=== PATIENT | female | born 1980 | race Caucasian/White ===

== ENCOUNTER 2025-01-22 10:39 | Inpatient (IN) | payer BC, SELFPAY ==
[2025-01-22] VITALS (82 sets, daily range): BP systolic 85–131; BP diastolic 32–88; PULSE 100–134; RESP 11–29; TEMP 36.4–38.1; O2SAT 67–100
--- NOTE | 2025-01-22 10:30 | RT.EKG_ITS ---
APPROVED REPORT Exam: Resting ECG Reason for Exam: Chest Pain Patient Location: E HR:122 bpm ECG Measurements Heart Rate 122 AXIS ND 152 P 96 QRSd 77 QRS 47 QT 317 T 54 QTc 452 Conclusion Sinus tachycardia...rate> 99 Physician: no stemi
[2025-01-22] MEDS: Ondansetron 4 MG/2 ML VIAL IVP (10:57)
[2025-01-22] MEDS: Lactated Ringers 1,000 ML 1000 ML IV ×2 (10:57→13:00)
[2025-01-22 11:03] LABS: BE (Venous) -17 mmol/L (-2-3); HCO3 (Venous) 12 mmol/L (23-28); O2 Sat (Venous) 62 %; TCO2 (Venous) 11 mmol/L (24-29); pCO2 (Venous) 31 mmHg (41-51); pO2 (Venous) 39 mmHg
[2025-01-22 11:04] LABS: Abs Immature Grans 0.09 10^3/uL (0.0-0.06); HCT 44.7 % (36.0-46.0); HGB 14.8 g/dL (11.2-15.7); Immature Grans % 0.5 %; MCH 32.5 pg (27.0-33.0); MCHC 33.1 % (32.0-36.0); MCV 98 fL (80-95); MPV 10.8 fL (8.0-11.0); Platelet Count 291 10^3/uL (130-400); RBC 4.55 10^6/uL (3.93-5.22); RDW 11.6 % (11.7-14.6); RDW-SD 42.3 fL; WBC 17.70 10^3/uL (4.4-10.8)
--- NOTE | 2025-01-22 11:15 | DI.RAD_ITS ---
Exam(s) XR CHEST 2V PA LATERAL EXAM: XR CHEST 2V PA LATERAL CLINICAL HISTORY: chest pain. TECHNIQUE: 2D digital imaging was performed. COMPARISON: No exams were available for comparison FINDINGS: 2 views: Heart size is normal. The mediastinum is not widened. Lungs are clear. No infiltrates nor pleural effusions. IMPRESSION: No acute pulmonary findings. DATA REPOSITORY: RADIATION DOSE DELIVERED:
[2025-01-22 11:19] LABS: Lipase 18 U/L (<78)
[2025-01-22 11:30] LABS: ALT 34 U/L (14-59); AST 31 U/L (15-37); Albumin 4.2 g/dL (3.4-5.0); Alkaline Phosphatase 116 U/L (46-116); Anion Gap 25.7 mmol/L (3-11); BUN 21 mg/dL (7-18); Bilirubin, Total 0.6 mg/dL (0.2-1.0); CO2 13.3 mmol/L (21.0-32.0); Calcium 8.9 mg/dL (8.5-10.1); Chloride 98 mmol/L (98-107); Estimated GFR 72.13 (mL/min/1.73m2); Glucose 296 mg/dL (74-106); Magnesium 2.2 mg/dL (1.8-2.4); Potassium 4.6 mmol/L (3.5-5.1); Sodium 137 mmol/L (136-145); Total Protein 7.6 g/dL (6.4-8.2); Troponin I 4 ng/L (<or=51)
[2025-01-22] MEDS: ACETAMINOPHEN 500 MG/50 ML BAG 200 MG IVPB ×2 (11:56→16:36)
[2025-01-22] MEDS: Dexamethasone 10 MG/ML VIAL IVP (11:56)
[2025-01-22] MEDS: diphenhydrAMINE 50 MG/ML VIAL 25 MG IVP (11:57)
[2025-01-22] MEDS: PIPERACILLIN/TAZO 3.375 GM in Normal Saline 50 ML IVPB ×2 (11:58→18:29)
[2025-01-22 13:04] LABS: Troponin I 5 ng/L (<or=51)
[2025-01-22] MEDS: Pantoprazole 40 MG VIAL IVP (13:27)
[2025-01-22] MEDS: Metoclopramide 10 MG/2 ML VIAL IVP (13:27)
[2025-01-22] MEDS: INSULIN REGULAR IN 0.9 % NACL 100 UNIT/100 ML BAG 6.622 UNIT IVINF (13:28)
[2025-01-22 13:36] LABS: Glucose 500 mg/dL (Negative)
[2025-01-22 13:42] LABS: RBC 0-2 HPF (0-2); WBC Negative HPF (0-5)
[2025-01-22 13:43] LABS: C & S Indicated? No
[2025-01-22] MEDS: POTASSIUM CHLORIDE/0.9% NACL 1,000 ML 500 MEQ IV (14:25)
--- NOTE | 2025-01-22 14:33 | W.ED.GENAD ---
Discharge Plan Discharge Details Chief Complaint: Chest Pain Primary Care Provider: Cheryl,Local ED Provider: Damaris Vides Home Meds and New Rx's Prescriptions: No Action insulin aspart U-100 [Novolog FlexPen U-100 Insulin] 100 unit/mL (3 mL) insulin pen 1 sliding scale dose subcut USEASDIRECTD Patient Comments: Pt has insulin pump 01/22/25 Mounjaro 15 mg/0.5 mL pen injector 15 mg subcut QWEEK HPI General Date/Time Provider Initiated Documentation: 01/22/25 10:42. HPI Narrative: 44-year-old female with history of diabetic ketoacidosis presenting with vomiting and throat swelling. Patient reports feeling warm since last night, followed by dark vomitus early this morning. Unable to drink, experiences epigastric pain and throat swelling, typical during such episodes. Manages secretions but notes voice change. No urinary symptoms, diarrhea, or sick contacts. Insulin pump in use, blood sugar 310 prior to arrival. No DKA since age 19, generally manages condition well. No additional symptoms. Related Data Home Medications ?Medication ?Instructions ?Recorded ?Confirmed insulin aspart U-100 100 unit/mL 1 sliding scale dose subcut 01/22/25 01/22/25 (3 mL) subcutaneous pen (Novolog USEASDIRECTD FlexPen U-100 Insulin aspart) tirzepatide 15 mg/0.5 mL 15 mg subcut QWEEK 01/22/25 01/22/25 subcutaneous pen injector (Mounjaro) Allergies Allergy/AdvReac Type Severity Reaction Status Date / Time cephalothin (From Seffin) Allergy Intermediate Hives Verified 01/22/25 10:48 General Stated Complaint: Chest Pain GAUDENCIO: 2 Course Vital Signs Vital signs: Vital Signs Temperature 36.4 C 01/22/25 10:43 Pulse 121 H 01/22/25 10:43 Respiratory Rate 20 01/22/25 10:43 Blood Pressure 124/46 L 01/22/25 10:43 Pulse Oximetry 98 01/22/25 10:43 Temperature 36.4 C 01/22/25 10:43 Temperature Source Tympanic 01/22/25 10:43 Pulse 131 H 01/22/25 14:01 Pulse 131 H 01/22/25 14:01 Respiratory Rate 16 01/22/25 14:01 Respiratory Effort Normal, Non-Labored 01/22/25 11:02 Respiratory Depth Normal 01/22/25 11:02 Respiratory Pattern Normal 01/22/25 11:02 Blood Pressure 107/57 L 01/22/25 14:00 Blood Pressure Mean 69 01/22/25 14:00 Blood Pressure Position Sitting 01/22/25 10:43 Pulse Oximetry 97 01/22/25 14:01 Oxygen Delivery Method Room Air 01/22/25 10:43 Oxygen Flow Rate 0 01/22/25 10:43 Pain Level 10 01/22/25 10:43 Lab/Test Results Lab/Test Results: 01/22/25 11:40 Blood Blood Culture - Pending 01/22/25 10:55 Blood Blood Culture - Pending Laboratory Tests Range/Units 01/22/25 01/22/25 01/22/25 10:55 12:21 12:50 WBC (4.4-10.8) 10^3/uL 17.70 H RBC (3.93-5.22) 10^6/uL 4.55 Hgb (11.2-15.7) g/dL 14.8 Hct (36.0-46.0) % 44.7 MCV (80-95) fL 98 H MCH (27.0-33.0) pg 32.5 MCHC (32.0-36.0) % 33.1 RDW (11.7-14.6) % 11.6 L Plt Count (130-400) 10^3/uL 291 MPV (8.0-11.0) fL 10.8 Immature Gran % % 0.5 Neutrophils % % 91.1 Lymphocytes % % 5.9 Monocytes % % 2.2 Eosinophils % % 0.1 Basophils % % 0.2 Nucleated RBC % (0.0-0.3) % 0.0 Absolute Neutrophils (1.2-6.7) 10^3/uL 16.12 H Absolute Lymphocytes (1.2-3.4) 10^3/uL 1.04 L Absolute Monocytes (0.1-0.8) 10^3/uL 0.39 Absolute Eosinophils (0.0-0.7) 10^3/uL 0.02 Absolute Basophils (0.0-0.2) 10^3/uL 0.04 VBG pH (7.31-7.41) 7.18 L* VBG pCO2 (41-51) mmHg 31 L VBG pO2 mmHg 39 VBG HCO3 (23-28) mmol/L 12 L VBG Total CO2 (24-29) mmol/L 11 L VBG O2 Saturation % 62 VBG Base Excess (-2-3) mmol/L -17 L VBG Lactate (<or=2.0) mmol/L 4.2 H* Sodium (136-145) mmol/L 137 Potassium (3.5-5.1) mmol/L 4.6 Chloride (98-107) mmol/L 98 Carbon Dioxide (21.0-32.0) mmol/L 13.3 L Anion Gap (3-11) mmol/L 25.7 H BUN (7-18) mg/dL 21 H Creatinine (0.55-1.02) mg/dL 1.0 Est GFR (CKD-EPI 2020) (mL/min/1.73m2) 72.13 Glucose (74-106) mg/dL 296 H Calcium (8.5-10.1) mg/dL 8.9 Magnesium (1.8-2.4) mg/dL 2.2 Total Bilirubin (0.2-1.0) mg/dL 0.6 AST (15-37) U/L 31 ALT (14-59) U/L 34 Alkaline Phosphatase (46-116) U/L 116 Troponin I (<or=51) ng/L 4 5 Total Protein (6.4-8.2) g/dL 7.6 Albumin (3.4-5.0) g/dL 4.2 Lipase (<78) U/L 18 Urine Color (Yellow) Yellow Urine Clarity (Clear) Clear Urine pH (5-8) 5.5 Ur Specific [place] (1.005-1.025) >= 1.030 H Urine Protein (Neg-Trace) mg/dL 30 H Urine Ketones (Negative) mg/dL >=160 H Urine Blood (Negative) Negative Urine Nitrite (Negative) Negative Urine Bilirubin (Negative) Negative Urine Urobilinogen (Up to 0.2) mg/dL 0.2 Ur Leukocyte Esterase (Negative) Negative Urine RBC (0-2) HPF 0-2 Urine WBC (0-5) HPF Negative Ur Epithelial Cells (Negative) HPF Moderate Urine Crystals (Negative) HPF Negative Urine Bacteria (Negative) HPF Rare Urine Casts (Negative) LPF 0-2 Hyaline Urine Mucus (Negative) Negative Ur Culture Indicated? No Urine Glucose (Negative) mg/dL 500 H Medical Decision Making General Appearance: Alert, oriented, appears unwell and flushed. Vital signs: Within normal limits. HEENT: No mandibular tenderness or swelling. Oropharynx patent, swelling noted to pillars and uvula, likely from vomiting. Slightly hoarse phonation. No meningismus. Respiratory: Lungs clear to auscultation. No respiratory distress. Cardiovascular: Sinus tachycardia, no rubs or murmurs. Gastrointestinal: No abdominal tenderness. Skin: No rashes or lesions. Neurological: Normal. Care time 45 minutes secondary to acute diabetic ketoacidosis requiring fluids IV antibiotics IV insulin telemetry monitoring EKG interpretation review diagnostic imaging interpretation review and consultation with admitting hospitalist Leukocytosis 17,000, shift 16%. pH 7.18. Gap 25. Ketonuria. Beta hydroxybutyrate present. CO2 13. Urinalysis negative for infection. Initial potassium 4.6. Chest x-ray shows no acute abnormality. Radiology interpretation of my review Initial Assessment: 44-year-old female with diabetic ketoacidosis. Vomiting, epigastric pain, throat swelling, hoarse phonation. Blood sugar 310. No urinary symptoms or diarrhea. Alert, oriented, flushed, sinus tachycardia, no respiratory distress, oropharynx swelling. Differential Diagnosis: - Diabetic Ketoacidosis: Labs consistent with DKA. No obvious infection source. Admission required. - Infection: Tachycardia, leukocytosis. Zosyn administered. No evidence in urinalysis. ED Course: - Chest x-ray interpreted by radiology, no acute abnormality. - Labs: Leukocytosis 17,000, shift 16%, pH 7.18, gap 25, CO2 13, ketonuria, beta hydroxybutyrate present. - Zosyn administered. - 2 L LR followed by NS with potassium. Initial potassium 4.6, started 10 mEq potassium/hour with 500 cm? boluses. - Insulin administration delayed. - Decadron and Benadryl given for throat swelling. - Tylenol given for discomfort. - Tachycardia improved slightly. - ABG requested, to be drawn at 1500 hours. - Repeat BMP and lactate pending. - 45 minutes of critical care time provided. Final Assessment: Management of diabetic ketoacidosis with fluids, insulin, telemetry monitoring, diagnostic imaging interpretation, and consultation. Tachycardia improved. Throat swelling reduced. Clinical Impression: - Diabetic Ketoacidosis - Infection Disposition: - Admission for diabetic ketoacidosis. PFSH Social History Smoking/Tobacco Use Status: Never Smoking risk assessment performed?: Yes Alcohol Intake: current Alcohol Intake frequency: a few times a month Substance use type: does not use PAWSS Have you Been Recently Intoxicated or Drunk Within the Last 30 days?: No Have you Ever Experienced Previous Episodes of Alcohol Withdrawal?: No Have you ever Experienced Withdrawal Seizures?: No Have you ever Experienced Delirium Tremens(DT)s?: No Have you ever undergone Alcohol Rehabilitation Treatment (i.e, inpt ot outpatient treatment programs)?: No Have you ever Experienced Blackouts?: No Have you ever Combined Alcohol with other Downers within the last 90 days?: No Have you ever Combined Alcohol with any other Substance of Abuse during the last 90 days?: No Positive Blood Alcohol level on Presentation? [PCS.BAL]: No Evidence of Increased Autonomic Activity (i.e. HR>120, tremor, sweating, agitation, nausea)?: No Result: 0
[2025-01-22 14:52] LABS: Anion Gap 23.4 mmol/L (3-11); BUN 19 mg/dL (7-18); CO2 11.6 mmol/L (21.0-32.0); Calcium 8.1 mg/dL (8.5-10.1); Chloride 103 mmol/L (98-107); Estimated GFR 72.13 (mL/min/1.73m2); Glucose 245 mg/dL (74-106); Potassium 4.6 mmol/L (3.5-5.1); Sodium 138 mmol/L (136-145)
[2025-01-22 15:44] LABS: BE (Venous) -18 mmol/L (-2-3); HCO3 (Venous) 10 mmol/L (23-28); O2 Sat (Venous) 81 %; TCO2 (Venous) 9 mmol/L (24-29); pCO2 (Venous) 25 mmHg (41-51); pO2 (Venous) 50 mmHg
[2025-01-22 15:58] LABS: Anion Gap 19.8 mmol/L (3-11); BUN 18 mg/dL (7-18); CO2 12.2 mmol/L (21.0-32.0); Calcium 7.6 mg/dL (8.5-10.1); Chloride 107 mmol/L (98-107); Estimated GFR 81.86 (mL/min/1.73m2); Glucose 168 mg/dL (74-106); Potassium 4.5 mmol/L (3.5-5.1); Sodium 139 mmol/L (136-145)
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
--- NOTE | 2025-01-22 16:04 | NUR.NOTE ---
This rn s/w Dr Pollard in ED. This rn and provider reviewed pt resulted BMP. Per provider: okay to start LR at 250 ml/hr and D5 150 ml/hr. Okay to transition to Q1HR finger stick and Q4 hr BMP. This rn went and informed pt of plan. Pt awake, alert, and oriented x4. No acute distress noted. Pt verbalized that she feels much better. :
--- NOTE | 2025-01-22 16:19 | W.PC.ACHO ---
Registration Status: ADM IN Primary Language: Preferred Language: ED Information & Data Chief Complaint Chest Pain 01/22/25 14:35 Triage Note Pt arrives to ED c/o CP. Pt 01/22/25 10:43 states she started feeling off last night around 2100 hrs. Pt states the pain began this AM around 0700 hrs w/ N/V. Pt states pain radiates into her back and up both sides of her neck. Medical / Surgical History (Last Updated 01/22/25 @ 16:11 by Master Pollard) Cervical disc disease Type 1 diabetes (Last Updated 01/22/25 @ 16:11 by Master Pollard) S/P sinus surgery S/P hernia repair S/P section Most Recent Vital Signs Temperature 36.4 C 01/22/25 10:43 Temperature Source Tympanic 01/22/25 10:43 Pulse 119 H 01/22/25 15:20 Pulse 121 H 01/22/25 15:20 Respiratory Rate 19 01/22/25 15:20 Respiratory Effort Normal, Non-Labored 01/22/25 11:02 Respiratory Depth Normal 01/22/25 11:02 Respiratory Pattern Normal 01/22/25 11:02 Blood Pressure 105/59 L 01/22/25 15:16 Blood Pressure Mean 72 01/22/25 15:16 Blood Pressure Position Sitting 01/22/25 10:43 Pulse Oximetry 97 01/22/25 15:20 Oxygen Delivery Method Room Air 01/22/25 10:43 Oxygen Flow Rate 0 01/22/25 10:43 Pain Level 10 01/22/25 10:43 Allergies cephalothin (From Seffin) Allergy (Intermediate, Verified 01/22/25 10:48) Hives Active Medications Generic Name Dose Route Start Last Admin Trade Name Freq PRN Reason Stop Dose Admin Potassium Chloride/Sodium Chloride 1,000 mls @ 500 mls/hr 01/22/25 12:45 01/22/25 14:25 Kcl 20meq/Ns IV 500 mls/hr INFUSION ELSI Administration Insulin Human Regular 100 unit in 100 mls @ 6.622 mls/hr 01/22/25 12:45 01/22/25 13:28 Myxredlin IVINF 0.1 unit/kg/hr INFUSION ELSI 6.622 mls/hr Protocol Administration 0.1 UNIT/KG/HR IV IV Catheter Type [Left Peripheral IV Antecubital] IV Catheter Type [Right Peripheral IV Antecubital] IV Catheter Gauge [Left 20 Antecubital] IV Catheter Gauge [Right 20 Antecubital] Diagnostics 01/22/25 01/22/25 01/22/25 Range/Units 23:15 19:15 15:30 WBC (4.4-10.8) 10^3/uL RBC (3.93-5.22) 10^6/uL Hgb (11.2-15.7) g/dL Hct (36.0-46.0) % MCV (80-95) fL MCH (27.0-33.0) pg MCHC (32.0-36.0) % RDW (11.7-14.6) % Plt Count (130-400) 10^3/uL MPV (8.0-11.0) fL Immature Gran % % Neutrophils % % Lymphocytes % % Monocytes % % Eosinophils % % Basophils % % Nucleated RBC % (0.0-0.3) % Absolute Neutrophils (1.2-6.7) 10^3/uL Absolute Lymphocytes (1.2-3.4) 10^3/uL Absolute Monocytes (0.1-0.8) 10^3/uL Absolute Eosinophils (0.0-0.7) 10^3/uL Absolute Basophils (0.0-0.2) 10^3/uL ABG Sample Site ABG pH ABG pCO2 ABG pO2 ABG HCO3 ABG Total CO2 ABG O2 Saturation ABG Base Excess VBG pH 7.20 L (7.31-7.41) VBG pCO2 25 L (41-51) mmHg VBG pO2 50 mmHg VBG HCO3 10 L (23-28) mmol/L VBG Total CO2 9 L (24-29) mmol/L VBG O2 Saturation 81 % VBG Base Excess -18 L (-2-3) mmol/L VBG Lactate (<or=2.0) mmol/L Sodium Pending Pending 139 (136-145) mmol/L Potassium Pending Pending 4.5 (3.5-5.1) mmol/L Chloride Pending Pending 107 (98-107) mmol/L Carbon Dioxide Pending Pending 12.2 L (21.0-32.0) mmol/L Anion Gap Pending Pending 19.8 H (3-11) mmol/L BUN Pending Pending 18 (7-18) mg/dL Creatinine Pending Pending 0.9 (0.55-1.02) mg/dL Est GFR (CKD-EPI 2020) Pending Pending 81.86 (mL/min/1.73m2) Glucose Pending Pending 168 H (74-106) mg/dL Calcium Pending Pending 7.6 L (8.5-10.1) mg/dL Magnesium (1.8-2.4) mg/dL Total Bilirubin (0.2-1.0) mg/dL AST (15-37) U/L ALT (14-59) U/L Alkaline Phosphatase (46-116) U/L Troponin I (<or=51) ng/L Total Protein (6.4-8.2) g/dL Albumin (3.4-5.0) g/dL Lipase (<78) U/L Urine Color (Yellow) Urine Clarity (Clear) Urine pH (5-8) Ur Specific Huntington (1.005-1.025) Urine Protein (Neg-Trace) mg/dL Urine Ketones (Negative) mg/dL Urine Blood (Negative) Urine Nitrite (Negative) Urine Bilirubin (Negative) Urine Urobilinogen (Up to 0.2) mg/dL Ur Leukocyte Esterase (Negative) Urine RBC (0-2) HPF Urine WBC (0-5) HPF Ur Epithelial Cells (Negative) HPF Urine Crystals (Negative) HPF Urine Bacteria (Negative) HPF Urine Casts (Negative) LPF Urine Mucus (Negative) Ur Culture Indicated? Urine Glucose (Negative) mg/dL B. divergens/MO-1 PCR Babesia duncani (PCR) Babesia microti DNA PCR Lyme Disease Antibody COVID-19 Source SARS-CoV-2 (PCR) E.chaffeensis DNA (PCR) E.ewingii/canis DNA PCR E.muris eauclairensis (PCR) Influenza Type A (PCR) Influenza Type B (PCR) RSV (PCR) A. phagocytophilum (PCR) Blood B. miyamotoi (PCR) 01/22/25 01/22/25 01/22/25 Range/Units 14:54 14:36 12:50 WBC (4.4-10.8) 10^3/uL RBC (3.93-5.22) 10^6/uL Hgb (11.2-15.7) g/dL Hct (36.0-46.0) % MCV (80-95) fL MCH (27.0-33.0) pg MCHC (32.0-36.0) % RDW (11.7-14.6) % Plt Count (130-400) 10^3/uL MPV (8.0-11.0) fL Immature Gran % % Neutrophils % % Lymphocytes % % Monocytes % % Eosinophils % % Basophils % % Nucleated RBC % (0.0-0.3) % Absolute Neutrophils (1.2-6.7) 10^3/uL Absolute Lymphocytes (1.2-3.4) 10^3/uL Absolute Monocytes (0.1-0.8) 10^3/uL Absolute Eosinophils (0.0-0.7) 10^3/uL Absolute Basophils (0.0-0.2) 10^3/uL ABG Sample Site Pending ABG pH Pending ABG pCO2 Pending ABG pO2 Pending ABG HCO3 Pending ABG Total CO2 Pending ABG O2 Saturation Pending ABG Base Excess Pending VBG pH (7.31-7.41) VBG pCO2 (41-51) mmHg VBG pO2 mmHg VBG HCO3 (23-28) mmol/L VBG Total CO2 (24-29) mmol/L VBG O2 Saturation % VBG Base Excess (-2-3) mmol/L VBG Lactate 3.3 H* (<or=2.0) mmol/L Sodium 138 (136-145) mmol/L Potassium 4.6 (3.5-5.1) mmol/L Chloride 103 (98-107) mmol/L Carbon Dioxide 11.6 L (21.0-32.0) mmol/L Anion Gap 23.4 H (3-11) mmol/L BUN 19 H (7-18) mg/dL Creatinine 1.0 (0.55-1.02) mg/dL Est GFR (CKD-EPI 2020) 72.13 (mL/min/1.73m2) Glucose 245 H (74-106) mg/dL Calcium 8.1 L (8.5-10.1) mg/dL Magnesium (1.8-2.4) mg/dL Total Bilirubin (0.2-1.0) mg/dL AST (15-37) U/L ALT (14-59) U/L Alkaline Phosphatase (46-116) U/L Troponin I (<or=51) ng/L Total Protein (6.4-8.2) g/dL Albumin (3.4-5.0) g/dL Lipase (<78) U/L Urine Color Yellow (Yellow) Urine Clarity Clear (Clear) Urine pH 5.5 (5-8) Ur Specific [place] >= 1.030 H (1.005-1.025) Urine Protein 30 H (Neg-Trace) mg/dL Urine Ketones >=160 H (Negative) mg/dL Urine Blood Negative (Negative) Urine Nitrite Negative (Negative) Urine Bilirubin Negative (Negative) Urine Urobilinogen 0.2 (Up to 0.2) mg/dL Ur Leukocyte Esterase Negative (Negative) Urine RBC 0-2 (0-2) HPF Urine WBC Negative (0-5) HPF Ur Epithelial Cells Moderate (Negative) HPF Urine Crystals Negative (Negative) HPF Urine Bacteria Rare (Negative) HPF Urine Casts 0-2 Hyaline (Negative) LPF Urine Mucus Negative (Negative) Ur Culture Indicated? No Urine Glucose 500 H (Negative) mg/dL B. divergens/MO-1 PCR Babesia duncani (PCR) Babesia microti DNA PCR Lyme Disease Antibody COVID-19 Source SARS-CoV-2 (PCR) E.chaffeensis DNA (PCR) E.ewingii/canis DNA PCR E.muris eauclairensis (PCR) Influenza Type A (PCR) Influenza Type B (PCR) RSV (PCR) A. phagocytophilum (PCR) Blood B. miyamotoi (PCR) 01/22/25 01/22/25 01/22/25 Range/Units 12:21 11:18 10:55 WBC 17.70 H (4.4-10.8) 10^3/uL RBC 4.55 (3.93-5.22) 10^6/uL Hgb 14.8 (11.2-15.7) g/dL Hct 44.7 (36.0-46.0) % MCV 98 H (80-95) fL MCH 32.5 (27.0-33.0) pg MCHC 33.1 (32.0-36.0) % RDW 11.6 L (11.7-14.6) % Plt Count 291 (130-400) 10^3/uL MPV 10.8 (8.0-11.0) fL Immature Gran % 0.5 % Neutrophils % 91.1 % Lymphocytes % 5.9 % Monocytes % 2.2 % Eosinophils % 0.1 % Basophils % 0.2 % Nucleated RBC % 0.0 (0.0-0.3) % Absolute Neutrophils 16.12 H (1.2-6.7) 10^3/uL Absolute Lymphocytes 1.04 L (1.2-3.4) 10^3/uL Absolute Monocytes 0.39 (0.1-0.8) 10^3/uL Absolute Eosinophils 0.02 (0.0-0.7) 10^3/uL Absolute Basophils 0.04 (0.0-0.2) 10^3/uL ABG Sample Site ABG pH ABG pCO2 ABG pO2 ABG HCO3 ABG Total CO2 ABG O2 Saturation ABG Base Excess VBG pH 7.18 L* (7.31-7.41) VBG pCO2 31 L (41-51) mmHg VBG pO2 39 mmHg VBG HCO3 12 L (23-28) mmol/L VBG Total CO2 11 L (24-29) mmol/L VBG O2 Saturation 62 % VBG Base Excess -17 L (-2-3) mmol/L VBG Lactate 4.2 H* (<or=2.0) mmol/L Sodium 137 (136-145) mmol/L Potassium 4.6 (3.5-5.1) mmol/L Chloride 98 (98-107) mmol/L Carbon Dioxide 13.3 L (21.0-32.0) mmol/L Anion Gap 25.7 H (3-11) mmol/L BUN 21 H (7-18) mg/dL Creatinine 1.0 (0.55-1.02) mg/dL Est GFR (CKD-EPI 2020) 72.13 (mL/min/1.73m2) Glucose 296 H (74-106) mg/dL Calcium 8.9 (8.5-10.1) mg/dL Magnesium 2.2 (1.8-2.4) mg/dL Total Bilirubin 0.6 (0.2-1.0) mg/dL AST 31 (15-37) U/L ALT 34 (14-59) U/L Alkaline Phosphatase 116 (46-116) U/L Troponin I 5 4 (<or=51) ng/L Total Protein 7.6 (6.4-8.2) g/dL Albumin 4.2 (3.4-5.0) g/dL Lipase 18 (<78) U/L Urine Color (Yellow) Urine Clarity (Clear) Urine pH (5-8) Ur Specific [place] (1.005-1.025) Urine Protein (Neg-Trace) mg/dL Urine Ketones (Negative) mg/dL Urine Blood (Negative) Urine Nitrite (Negative) Urine Bilirubin (Negative) Urine Urobilinogen (Up to 0.2) mg/dL Ur Leukocyte Esterase (Negative) Urine RBC (0-2) HPF Urine WBC (0-5) HPF Ur Epithelial Cells (Negative) HPF Urine Crystals (Negative) HPF Urine Bacteria (Negative) HPF Urine Casts (Negative) LPF Urine Mucus (Negative) Ur Culture Indicated? Urine Glucose (Negative) mg/dL B. divergens/MO-1 PCR Pending Babesia duncani (PCR) Pending Babesia microti DNA PCR Pending Lyme Disease Antibody Pending COVID-19 Source Pending SARS-CoV-2 (PCR) Pending E.chaffeensis DNA (PCR) Pending E.ewingii/canis DNA PCR Pending E.muris eauclairensis (PCR) Pending Influenza Type A (PCR) Pending Influenza Type B (PCR) Pending RSV (PCR) Pending A. phagocytophilum (PCR) Pending Blood B. miyamotoi (PCR) Pending 01/22/25 11:40 Blood Culture - Pending Blood 01/22/25 10:55 Blood Culture - Pending Blood [id number] Documentation Fingerstick Glucose Start: 01/22/25 11:03 Freq: Status: Complete Protocol: Activity Type Activity Date Activity User E-sign Co-sign Detail Recorded Client Recorded Date Recorded By Document 01/22/25 11:02 JORDYNG DAEMON(5) [id number] 01/22/25 11:03 BKG DAEMON(6) Fingerstick Glucose Start: 01/22/25 11:54 Freq: .Q1H Status: Active Protocol: Activity Type Activity Date Activity User E-sign Co-sign Detail Recorded Client Recorded Date Recorded By Document 01/22/25 13:17 BKG DAEMON(7) [id number] 01/22/25 13:19 BKG DAEMON(8) Intake and Output - 24 Hour Total 01/22/25 10:39 thru 01/22/25 14:30 Intake Total 2100 Balance 2100 Weight 66.224 kg Intake: IV 2100 Falls Risk Assessment History of Falls No History 01/22/25 11:02 Contributing Factors No Factors 01/22/25 11:02 Ambulatory Aids Independent 01/22/25 11:02 Tubes/Lines None 01/22/25 11:02 Gait Evaluation No gait disturbance 01/22/25 11:02 Cognition No cognitive impairment 01/22/25 11:02 Fall Total Score 0 01/22/25 11:02 Level of Risk Standard/Low Risk 01/22/25 11:02 Notes 01/22/25 16:04 Nursing Notes by Charo Schneider This rn s/w Dr Pollard in ED. This rn and provider reviewed pt resulted BMP. Per provider: okay to start LR at 250 ml/hr and D5 150 ml/hr. Okay to transition to Q1HR finger stick and Q4 hr BMP. This rn went and informed pt of plan. Pt awake, alert, and oriented x4. No acute distress noted. Pt verbalized that she feels much better. : Initialized on 01/22/25 16:04 - END OF NOTE v v v v v v v v v Sending and/or Receiving Nurses: Please use comment section below to note any information pertinent to the patient hand-off not included above. Information / Comments: Report received from: Fox Schneider RN All questions answered
[2025-01-22] MEDS: Lactated Ringers 1,000 ML 250 ML IV (16:31)
--- NOTE | 2025-01-22 17:02 | NUR.NOTE ---
16:45 This rn gave report to [facility] [employer]. D5 in LR was unable to be initiated in ER as there was none in supply. Magnolia RN to initiate D5 LR in ICU. Pt BG 116. Allsion RN made aware by this rn. Per protocol continue to hold insulin drip for 30 min. Insulin drip is paused at this time Nursing Note:
[2025-01-22] MEDS: INSULIN REGULAR IN 0.9 % NACL 100 UNIT/100 ML BAG IVINF (17:13)
[2025-01-22] MEDS: DEXTROSE 5%-LACTATED RINGERS 1,000 ML 150 ML IV (17:41)
[2025-01-22 19:35] LABS: COVID-19 PCR Negative (Negative); RSV PCR Negative (Negative)
[2025-01-22 19:55] LABS: Anion Gap 15.4 mmol/L (3-11); BUN 15 mg/dL (7-18); CO2 14.6 mmol/L (21.0-32.0); Calcium 7.5 mg/dL (8.5-10.1); Chloride 108 mmol/L (98-107); Estimated GFR 72.13 (mL/min/1.73m2); Glucose 173 mg/dL (74-106); Potassium 4.4 mmol/L (3.5-5.1); Sodium 138 mmol/L (136-145)
[2025-01-22] MEDS: ACETAMINOPHEN 1,000 MG/100 ML BAG 400 MG IVPB (21:01)
[2025-01-22 23:59] LABS: Anion Gap 11.7 mmol/L (3-11); BUN 13 mg/dL (7-18); CO2 18.3 mmol/L (21.0-32.0); Calcium 7.4 mg/dL (8.5-10.1); Chloride 108 mmol/L (98-107); Estimated GFR 94.28 (mL/min/1.73m2); Glucose 93 mg/dL (74-106); Potassium 3.9 mmol/L (3.5-5.1); Sodium 138 mmol/L (136-145)
[2025-01-23] VITALS (64 sets, daily range): BP systolic 78–121; BP diastolic 47–75; PULSE 88–117; RESP 12–23; TEMP 37.1–37.7; O2SAT 93–99
[2025-01-23] MEDS: PIPERACILLIN/TAZO 3.375 GM in Normal Saline 50 ML IVPB (01:00)
[2025-01-23] MEDS: Insulin NPH-Human 300 UNITS/3 ML PEN 14 UNIT SC (02:43)
[2025-01-23] MEDS: Insulin Aspart 300 UNITS/3 ML PEN SC (08:04)
[2025-01-23 08:58] LABS: Abs Immature Grans 0.09 10^3/uL (0.0-0.06); HCT 34.3 % (36.0-46.0); HGB 11.5 g/dL (11.2-15.7); Immature Grans % 0.7 %; MCH 32.8 pg (27.0-33.0); MCHC 33.5 % (32.0-36.0); MCV 98 fL (80-95); MPV 10.4 fL (8.0-11.0); Platelet Count 210 10^3/uL (130-400); RBC 3.51 10^6/uL (3.93-5.22); RDW 12.1 % (11.7-14.6); RDW-SD 43.4 fL; WBC 12.59 10^3/uL (4.4-10.8)
[2025-01-23 09:11] LABS: Lyme Ab w Rflx to Lyme Confirm Negative (Negative)
[2025-01-23 09:12] LABS: Anion Gap 17.9 mmol/L (3-11); BUN 12 mg/dL (7-18); CO2 14.1 mmol/L (21.0-32.0); Calcium 7.5 mg/dL (8.5-10.1); Chloride 106 mmol/L (98-107); Estimated GFR 94.28 (mL/min/1.73m2); Glucose 212 mg/dL (74-106); Potassium 3.6 mmol/L (3.5-5.1); Sodium 138 mmol/L (136-145)
[2025-01-23 09:16] LABS: Magnesium 2.0 mg/dL (1.8-2.4)
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
[2025-01-26 15:14] LABS: B. miyamotoi PCR Negative (Negative); Babesia divergens/MO-1 Negative (Negative); Ehrlichia muris eauclairensis Negative (Negative)
== END 2025-01-23 11:11 | disposition home or self-care (01) | DRG 639 ==
LOC: ER 12:36 → ICU 16:06
PROVIDERS: Admitting Provider Family Medicine; Emergency Provider Physician Assistant; Responsible Provider Family Medicine; Visit Provider Family Medicine
DX: E10.10 Type 1 diabetes mellitus with ketoacidosis without coma (principal); R11.2 Nausea with vomiting, unspecified; R10.13 Epigastric pain; D72.829 Elevated white blood cell count, unspecified; R49.0 Dysphonia; Z96.41 Presence of insulin pump (external) (internal)
CPT/HCPCS: 00123; 36415; 36416; 80048; 80053; 82805; 82962; 83690; 87040; 87637; 87798; 93005; 96361; 96365; 96368; 96375; 99291; 71046; 81003; 81015; 83605; 83735; 84100; 84484; 85025; 86618; 93010; 99223; 99239; J0131; J1100; J1200; J1815; J2405; J2470; J2543; J2765